=== PATIENT | female | born 1940 | race Caucasian/White ===

== ENCOUNTER → 2019-09-07 | Outpatient (CLI) | payer MEDICARE | END | disposition home or self-care (01) | LOC: LABPAT 14:40 | PROVIDERS: ATTEND Surgery Plastic and Reconstructive Surgery | DX: Z01.810 Encounter for preprocedural cardiovascular examination (principal) | CPT/HCPCS: 93005 ==

== ENCOUNTER → 2019-12-03 | Day surgery (SDC) | payer MEDICARE ==
[2019-11-08 11:54] VITALS: BMI 31.2
--- NOTE | 2019-12-02 21:14 | P.GSHP ---
History of Present Illness H&P Date: 12/03/19 CHIEF COMPLAINT: History of back mass. HISTORY OF PRESENT ILLNESS: Alejandrina Andre is an 78-year-old female who has a past history of colon cancer resection almost 10 years ago. She also reports resection of her cyst along her back 3 years ago with recurrence and drainage every 2 months. Her daughter is at bedside and provides photographic images regarding the findings. She reports pain as a result. She says that this is a staph infection. She has been on off- again and on-again antibiotics. PAST MEDICAL HISTORY: Please see list. PAST SURGICAL HISTORY: Please see list. MEDICATIONS: Please see list. ALLERGIES: Please see list. SOCIAL HISTORY: No illicit drug use FAMILY HISTORY: No reports of Crohn disease or ulcerative colitis. REVIEW OF ORGAN SYSTEMS: CONSTITUTIONAL: No reports of fevers or chills. GI: Denies any blood in stools or constipation. PHYSICAL EXAM: VITAL SIGNS: Stable Musculoskeletal: No clubbing, cyanosis, or edema. SKIN: 4 x 6 cm of the upper back. GENERAL: Well developed and in no acute distress. Pleasant. HEENT: No sclera icterus. Extraocular movements grossly intact. Moist buccal mucosa. Head is atraumatic, normocephalic. Hears conversational speech. No nasal drainage. NECK: Supple without lymphadenopathy. No JV distention. CHEST: Non-labored respirations and equal bilateral excursions. CARDIOVASCULAR: Regular rate and rhythm. Palpable 2+ radial pulses. ABDOMEN: Soft. Non-tender. Nondistended. NEUROLOGIC: No focal or lateralizing signs. PSYCH: Appropriate affect. Alert and oriented to person, place and time. ASSESSMENT: 1. Recurrent right upper back inclusion cyst. PLAN: 1. Given the size of the lesion and previous attempts at resection, I have recommended an excision of at least 4 x 6 cm of the upper back. 2. The family did describe that she has intolerance to anesthesia including severe postoperative nausea and vomiting. 3. DVT prophylaxis. 4. Antibiotic prophylaxis. 5. Time of recovery, at least one week. Past Medical History Past Medical History: Cancer, Diabetes Mellitus, Eye Disorder, Hyperlipidemia, Hypertension, Renal Disease, Skin Disorder Additional Past Medical History / Comment(s): Colon CA 2009. Mac degeneration. Kidney Dr q3 months."RENAL DISEASE STAGE 3", Hx mult cysts, Cyst on back currently. Has goiter. RECENT BRONCHITIS AND SINUS INFECTION - FINISHED ANTIBIOTIC History of Any Multi-Drug Resistant Organisms: None Reported Past Surgical History: Appendectomy, Bowel Resection, Heart Catheterization, Hernia Repair, Hysterectomy, Tonsillectomy Additional Past Surgical History / Comment(s): 17 inches colon removed for CA. Cataracts. Exc cysts. Past Anesthesia/Blood Transfusion Reactions: Family History of Problems w/ Ane sthesia, Motion Sickness, Postoperative Nausea & Vomiting (PONV) Additional Past Anesthesia/Blood Transfusion Reaction / Comment(s): Family has PONV. Smoking Status: Never smoker - Past Family History Father Family Medical History: Cancer Additional Family Medical History / Comment(s): colon CA Mother Additional Family Medical History / Comment(s): Brain aneurysm Sister(s) Family Medical History: Cancer, Deep Vein Thrombosis (DVT) Medications and Allergies Home Medications Medication Instructions Recorded Confirmed Type ALPRAZolam [Xanax] 0.5 mg PO HS PRN 11/08/19 11/08/19 History Aspirin [Adult Low Dose Aspirin EC] 81 mg PO DAILY 11/08/19 12/01/19 History C,E,Zinc,Copper 11/Gfvuh4y/Lut 1 each PO HS 11/08/19 12/01/19 History [Ocuvite Adult 50 Plus Softgel] Cholecalciferol [Vitamin D3 (25 1,000 unit PO DAILY 11/08/19 11/08/19 History Mcg = 1000 Iu)] Glimepiride [Amaryl] 1 mg PO AC-BRKFST 11/08/19 11/08/19 History Linagliptin [Tradjenta] 5 mg PO DAILY 11/08/19 11/08/19 History Magnesium Oxide [Mag-Ox] 250 mg PO DAILY 11/08/19 11/08/19 History Metoprolol Tartrate [Lopressor] 25 mg PO BID 11/08/19 11/08/19 History Multivit/Folic Acid/Vit K1 1 each PO DAILY 11/08/19 12/01/19 History [One-A-Day Women's 50 Plus Tab] Simvastatin [Zocor] 20 mg PO HS 11/08/19 11/08/19 History Spironolactone [Aldactone] 25 mg PO DAILY 11/08/19 11/08/19 History Allergies Allergy/AdvReac Type Severity Reaction Status Date / Time Iodine and Iodide Containing Allergy Severe Nausea & Verified 12/01/19 09:12 Produc Vomiting doxycycline Allergy Rash/Hives Verified 12/01/19 09:12 povidone-iodine Allergy Nausea & Verified 12/01/19 09:12 Vomiting aspirin AdvReac Nausea & Verified 12/01/19 09:12 Vomiting with full strength Aspirin
[~2019-12-03] MED LIST: DEXAMETHASONE SOD PHOSPHATE 10 MG/ML 1 ML VIAL IV ONE; HYDROmorphone 0.5 MG/0.5 ML SYRINGE IVP ONE; LACTATED RINGERS 1,000 ML IV ONE; LACTATED RINGERS 1,000 ML IV SCH; LIDOCAINE 1% INJ 10MG/ML (20 ML MDV) ONE; LIDOCAINE 1% INJ 10MG/ML (20 ML MDV) SQ ONE; METOCLOPRAMIDE 5 MG/ML 2 ML VIAL IVP ONE; MIDAZOLAM 2 MG/2 ML VIAL IV PRN; ONDANSETRON 4 MG/2 ML VIAL IVP ONE; PROPOFOL 10 MG/ML 20 ML VIAL IV ONE; Pre Op ABX Message 1 EACH MISC MISCELLANE ONE; SUCCINYLCHOLINE CHLORIDE 100 MG/5 ML SYR IV ONE; ePHEDrine SULFATE/0.9% NACL/PF 50 MG/5 ML SYRINGE IV ONE; fentaNYL (PF) 50 MCG/ML 2 ML AMP IV PRN; fentaNYL (PF) 50 MCG/ML 2 ML AMP ONE
[2019-12-03 06:47] LABS: Glucose,Whole Blood 124 mg/dL (75-99)
[2019-12-03 06:58] LABS: Basophils % (A) 0 %; Eosinophils # (A) 0.3 k/uL (0-0.7); Eosinophils % (A) 2 %; HCT 40.9 % (34.0-46.0); HGB 13.2 gm/dL (11.4-16.0); Lymphocytes # (A) 2.9 k/uL (1.0-4.8); Lymphocytes % (A) 20 %; MCH 28.8 pg (25.0-35.0); MCHC 32.2 g/dL (31.0-37.0); MCV 89.3 fL (80.0-100.0); Monocytes # (A) 0.6 k/uL (0-1.0); Monocytes % (A) 4 %; Neutrophils # (A) 10.9 k/uL (1.3-7.7); Neutrophils % (A) 73 %; Platelet Count 301 k/uL (150-450); RBC 4.57 m/uL (3.80-5.40); RDW 13.1 % (11.5-15.5); WBC 14.9 k/uL (3.8-10.6)
[2019-12-03 07:05] LABS: Albumin 4.1 g/dL (3.5-5.0); Calcium 9.8 mg/dL (8.4-10.2); Potassium 5.2 mmol/L (3.5-5.1); Total Bilirubin 0.6 mg/dL (0.2-1.3); Total Protein 7.2 g/dL (6.3-8.2)
--- NOTE | 2019-12-03 08:40 | P.OP ---
Date of Procedure: 12/03/19 Description of Procedure: SURGEON: BHAKTI SUAREZ MD LINING SCRUBBER: None. PREOPERATIVE DIAGNOSES: 1. Deep subcutaneous right midlower back tumor 2. Leukocytosis 3. Diabetes type 2, zmk-ofautcl-mzsysvoph dependent 4. Chronic renal insufficiency, stage III, diabetic nephropathy 5. Congestive heart failure, diastolic 6. Hyperlipidemia 7. Generalized anxiety disorder POSTOPERATIVE DIAGNOSES: 1. Deep subcutaneous right midlower back tumor, 9 x 4 cm 2. Leukocytosis 3. Diabetes type 2, wgi-xboedtd-ydjnzzkcg dependent 4. Chronic renal insufficiency, stage III, diabetic nephropathy 5. Congestive heart failure, diastolic 6. Hyperlipidemia 7. Generalized anxiety disorder PROCEDURES PERFORMED: 1. Excision of deep subcutaneous right midlower back mass, 9 x 4 cm 2. Complex four layer closure right midlower back incision, 10-cm Anesthesia: GETA, local Estimated Blood Loss (ml): 5 Pathology: other (back mass) Condition: stable Disposition: same day COMPLICATIONS: None. Operative Findings: 1. Excision of deep right midlower back tumor 9 x 4 cm INDICATIONS: The patient is a 79-year-old male who presents with symptomatic right midlower back tumor. Benefits and risks of surgical intervention were described including bleeding, infection, seroma, pain and recurrence. Informed consent was obtained. DESCRIPTION OR PROCEDURE: In the preoperative area, the area of concern was marked with indelible marker. Patient was brought into the operating room. After general induction, she was positioned in prone. The back was prepped and draped in a standard sterile fashion with ChloraPrep. Timeout protocol was confirmed with the surgical team regarding the patient's name, procedure to be performed including preoperative medications. DVT prophylaxis was confirmed. A field block was placed of the left lower back. An transverse incision using #15 blade was made along the marking into the dermis and subcutaneous tissue. Electro-Bovie cautery was used to enter deep into the subcutaneous tissue to the fascia for removal of her back mass in total of 9 x 4 cm. 0 Vicryl for the fascia and deep subcutaneous tissue followed by 3-0 Vicryl for the subcutaneous tissue was placed in interrupted fashion. 4-0 Monocryl in a running subcuticular fashion was placed along the dermis. The skin was cleansed and Exofin tape with liquid was applied for a four layer closure. The incision was covered with Optifoam dressing. At the end of the procedure, needle, sponge, and instrument count was verified correct by surgical consultant. The patient tolerated the procedure well. Plan - Discharge Summary Discharge Rx Participant: No New Discharge Prescriptions: New Acetaminophen Tab [Tylenol Tab] 1,000 mg PO Q6HR PRN #30 tablet PRN Reason: Pain Continue Magnesium Oxide [Mag-Ox] 250 mg PO DAILY Cholecalciferol [Vitamin D3 (25 Mcg = 1000 Iu)] 1,000 unit PO DAILY ALPRAZolam [Xanax] 0.5 mg PO HS PRN PRN Reason: sleep Metoprolol Tartrate [Lopressor] 25 mg PO BID Glimepiride [Amaryl] 1 mg PO AC-BRKFST Spironolactone [Aldactone] 25 mg PO DAILY Simvastatin [Zocor] 20 mg PO HS Linagliptin [Tradjenta] 5 mg PO DAILY Aspirin [Adult Low Dose Aspirin EC] 81 mg PO DAILY Multivit/Folic Acid/Vit K1 [One-A-Day Women's 50 Plus Tab] 1 each PO DAILY C,E,Zinc,Copper 11/Osolh6d/Lut [Ocuvite Adult 50 Plus Softgel] 1 each PO HS Discharge Medication List ALPRAZolam [Xanax] 0.5 mg PO HS PRN 11/08/19 [History] Aspirin [Adult Low Dose Aspirin EC] 81 mg PO DAILY 11/08/19 [History] C,E,Zinc,Copper 11/Dgxzz0s/Lut [Ocuvite Adult 50 Plus Softgel] 1 each PO HS 11/08/19 [History] Cholecalciferol [Vitamin D3 (25 Mcg = 1000 Iu)] 1,000 unit PO DAILY 11/08/19 [History] Glimepiride [Amaryl] 1 mg PO AC-BRKFST 11/08/19 [History] Linagliptin [Tradjenta] 5 mg PO DAILY 11/08/19 [History] Magnesium Oxide [Mag-Ox] 250 mg PO DAILY 11/08/19 [History] Metoprolol Tartrate [Lopressor] 25 mg PO BID 11/08/19 [History] Multivit/Folic Acid/Vit K1 [One-A-Day Women's 50 Plus Tab] 1 each PO DAILY 11/08/19 [History] Simvastatin [Zocor] 20 mg PO HS 11/08/19 [History] Spironolactone [Aldactone] 25 mg PO DAILY 11/08/19 [History] Acetaminophen Tab [Tylenol Tab] 1,000 mg PO Q6HR PRN #30 tablet 12/03/19 [Rx] Follow up Appointment(s)/Referral(s): Bhakti Suarez MD [STAFF PHYSICIAN] - 12/07/19 Patient Instructions/Handouts: Excision of Skin Lesion (GEN), Dermal Cyst Excision (DC) Activity/Diet/Wound Care/Special Instructions: No lifting for 4 pounds in 4 weeks, January 01. March shower. No bathtub soaks for 2 weeks until Dec 17. Diet as tolerated. No driving while on narcotics. Use Tylenol scheduled for the next 24-48 hours for best pain relief. Use ice along incisions for the today to prevent swelling. Discharge Disposition: HOME SELF-CARE
[2019-12-03 08:53] VITALS: TEMP 97.3
[2019-12-03 09:04] LABS: Glucose,Whole Blood 166 mg/dL (75-99)
[2019-12-03 09:47] VITALS: BP 143/65; PULSE 85; RESP 16
== END | disposition home or self-care (01) ==
LOC: OR 06:16
PROVIDERS: ATTEND Surgery Plastic and Reconstructive Surgery
DX: L72.0 Epidermal cyst (principal); I13.0 Hypertensive heart and chronic kidney disease with heart failure and stage 1 through stage 4 chronic kidney disease, or unspecified chronic kidney disease; E11.22 Type 2 diabetes mellitus with diabetic chronic kidney disease; I50.30 Unspecified diastolic (congestive) heart failure; N18.3 Chronic kidney disease, stage 3 (moderate); F41.1 Generalized anxiety disorder; D72.829 Elevated white blood cell count, unspecified; E78.2 Mixed hyperlipidemia; Z88.1 Allergy status to other antibiotic agents; Z88.6 Allergy status to analgesic agent; Z88.8 Allergy status to other drugs, medicaments and biological substances; Z91.041 Radiographic dye allergy status; Z85.038 Personal history of other malignant neoplasm of large intestine; Z90.49 Acquired absence of other specified parts of digestive tract; Z90.710 Acquired absence of both cervix and uterus; Z90.89 Acquired absence of other organs; Z98.49 Cataract extraction status, unspecified eye; Z79.82 Long term (current) use of aspirin; Z79.84 Long term (current) use of oral hypoglycemic drugs; Z79.899 Other long term (current) drug therapy; Z80.0 Family history of malignant neoplasm of digestive organs; Z82.49 Family history of ischemic heart disease and other diseases of the circulatory system
CPT/HCPCS: 88305; 80053; 85025; 11406; 12034; J1100; J2765; J0690; J2405; J2001; J3010; J0330; J2704; J1170